=== PATIENT | male | born 1990 | race Caucasian/White ===

== ENCOUNTER 2018-04-22 14:13 | Emergency (ER) | payer OTHER ==
[~2018-04-22] VITALS: Ht 180.3 cm; Wt 59.0 kg
== END 2018-04-22 14:45 | disposition home or self-care (01) ==
LOC: ED 14:13
DX: F15.90 Other stimulant use, unspecified, uncomplicated (principal); F17.200 Nicotine dependence, unspecified, uncomplicated
CPT/HCPCS: 99284

== ENCOUNTER 2018-09-04 13:58 | Emergency (ER) | payer OTHER ==
[~2018-09-04] VITALS: Ht 180.3 cm; Wt 68.0 kg
--- OUTSIDE RECORDS SUMMARY | 2018-09-04 14:02 | XMS ---
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 Deni has no Care Guidelines for this patient. Care History Medical/Surgical 05/29/2018 [facility] - IF PATIENT IS SEEN IN THE ED PLEASE CONTACT EUGENIO ENGEL AT [phone]. - PATIENT NO SHOWED TO APT WITH [facility] AT 05/27/18. - [facility] IS TRYING TO HELP PATIENT ESTABLISH WITH A PCP AND HELP WITH HOUSING CONCERNS. E.D. VISIT COUNT (12 MO.) 1 Sujit Khalil 1 [facility] ED 3 [facility]. TOTAL 5 NOTE: Visits indicate total known visits. ED/C VISIT TRACKING (12 MO.) 09/04/2018 13:58 [facility] TYPE: Emergency COMPLAINT: - MEDICAL CLERANCE 05/29/2018 00:38 [facility] [place] TYPE: Emergency COMPLAINT: - FLU LIKE SYMPTOMS DIAGNOSES: - Nicotine dependence, unspecified, uncomplicated - Cough - Acute bronchitis, unspecified - Other chronic pain - Headache 05/17/2018 21:33 [facility] TYPE: Emergency DIAGNOSES: - Other specified abnormal findings of blood chemistry - Otalgia, left ear - Otalgia - Headache - medical clearance - Headache - Suicidal ideations - Other psychoactive substance abuse, uncomplicated - Suicide Attempt 04/22/2018 14:14 [facility] TYPE: Emergency COMPLAINT: - DRUG USE DIAGNOSES: - Auditory hallucinations - Nicotine dependence, unspecified, uncomplicated - Other stimulant use, unspecified, uncomplicated 09/22/2017 17:06 [facility] [place] TYPE: Emergency DIAGNOSES: - Arm Pain - Cellulitis of left upper limb INPATIENT VISIT TRACKING (12 MO.) No inpatient visits to display in this time frame [email or web address]
[2018-09-04] MEDS ORDERED: WELLBUTRIN SR100 MG PO (14:10)
[2018-09-04] MEDS ORDERED: GEODON40 MG PO (18:35)
== END 2018-09-04 18:52 | disposition home or self-care (01) ==
LOC: ED 13:58
DX: F25.9 Schizoaffective disorder, unspecified (principal); G47.00 Insomnia, unspecified; F17.200 Nicotine dependence, unspecified, uncomplicated; Z79.899 Other long term (current) drug therapy
CPT/HCPCS: 80053; 80176; 81001; 84439; 84443; 85025; 99285; G0480

== ENCOUNTER 2019-02-01 23:01 | Emergency (ER) | payer OTHER ==
[~2019-02-01] VITALS: Ht 180.3 cm; Wt 65.8 kg
[~2019-02-01 23:01] MED LIST: GEODON40 MG PO; WELLBUTRIN SR100 MG PO
--- OUTSIDE RECORDS SUMMARY | 2019-02-01 23:04 | XMS ---
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 Care History Medical/Surgical 09/05/2018 [facility] - PATIENT IS TO ESTABLISH CARE WITH DR CUMMINS ON 09/13/18 @ 11:00AM. 05/29/2018 [facility] - IF PATIENT IS SEEN IN THE ED PLEASE CONTACT EUGENIO ENGEL AT [phone]. - PATIENT NO SHOWED TO APT WITH [facility] AT 05/27/18. - [facility] IS TRYING TO HELP PATIENT ESTABLISH WITH A PCP AND HELP WITH HOUSING CONCERNS. E.D. VISIT COUNT (12 MO.) 1 [facility] ED 4 [facility] TOTAL 5 NOTE: Visits indicate total known visits. ED/UCC VISIT TRACKING (12 MO.) 02/01/2019 23:02 [facility] [place] TYPE: Emergency COMPLAINT: - DIFFICULTY BREATHING 09/04/2018 13:58 [facility] [place] TYPE: Emergency COMPLAINT: - MEDICAL CLERANCE DIAGNOSES: - Other care home (current) drug therapy - Insomnia, unspecified - Nicotine dependence, unspecified, uncomplicated - Schizoaffective disorder, unspecified 05/29/2018 00:38 [facility] [place] TYPE: Emergency COMPLAINT: - FLU LIKE SYMPTOMS DIAGNOSES: - Nicotine dependence, unspecified, uncomplicated - Cough - Acute bronchitis, unspecified - Other chronic pain - Headache 05/17/2018 21:33 [facility] TYPE: Emergency DIAGNOSES: - Other specified abnormal findings of blood chemistry - Otalgia, left ear - Otalgia - Headache - medical clearance - Headache - Suicidal ideations - Other psychoactive substance abuse, uncomplicated - Suicide Attempt 04/22/2018 14:14 [facility] [place] TYPE: Emergency COMPLAINT: - DRUG USE DIAGNOSES: - Auditory hallucinations - Nicotine dependence, unspecified, uncomplicated - Other stimulant use, unspecified, uncomplicated INPATIENT VISIT TRACKING (12 MO.) No inpatient visits to display in this time frame [email or web address]
[2019-02-02] MEDS ORDERED: PREDNISONE20 MG PO (01:01)
== END 2019-02-02 01:33 | disposition home or self-care (01) ==
LOC: ED 23:01
DX: J20.9 Acute bronchitis, unspecified (principal); J45.901 Unspecified asthma with (acute) exacerbation; F17.200 Nicotine dependence, unspecified, uncomplicated
CPT/HCPCS: 71046; 99283-25; J7512